=== PATIENT | male | born 1955 | race Native Hawaiian/Other Pacific Islander ===

== ENCOUNTER 2021-06-22 14:46 | Outpatient (CLI) | payer OTHER ==
[2021-06-22 15:10] LABS: PLATELET COUNT 245 K/uL (142-355)
[2021-06-22 15:32] LABS: SODIUM 142 mmol/L (136-145)
== END 2021-06-22 19:01 | disposition home or self-care (01) ==
LOC: LAB 14:46
PROVIDERS: ATTEND Internal Medicine
DX: E05.90 Thyrotoxicosis, unspecified without thyrotoxic crisis or storm (principal)
CPT/HCPCS: 80053; 80061; 84439; 84443; 85027